=== PATIENT | male | born 1960 | race Caucasian/White ===

== ENCOUNTER 2022-03-26 18:00 | Outpatient (CLI) | payer BC | END 2022-03-26 18:01 | disposition home or self-care (01) | LOC: SLEEPLAB 18:00 | PROVIDERS: ATTEND Internal Medicine | DX: G47.33 Obstructive sleep apnea (adult) (pediatric) (principal); G47.9 Sleep disorder, unspecified; R53.83 Other fatigue; F41.9 Anxiety disorder, unspecified; G47.00 Insomnia, unspecified; I10 Essential (primary) hypertension; R06.83 Snoring | CPT/HCPCS: 95800 ==

== ENCOUNTER 2024-03-01 09:12 | Outpatient (CLI) | payer BC, MEDICARE | END 2024-03-01 09:13 | disposition home or self-care (01) | LOC: NM 09:12 | PROVIDERS: ATTEND Otolaryngology Plastic Surgery within the Head & Neck | DX: E21.3 Hyperparathyroidism, unspecified (principal); R22.1 Localized swelling, mass and lump, neck | CPT/HCPCS: 36415; 70492; 78072; 82565; A9500 ==